=== PATIENT | female | born 1960 | race Caucasian/White ===

== ENCOUNTER 2021-06-19 09:58 | Emergency (ER) | payer OTHER ==
[~2021-06-19] VITALS: Ht 157.5 cm; Wt 68.1 kg
[2021-06-19 11:38] LABS: HEMATOCRIT 42.2 % (37.0-47.0); HEMOGLOBIN 13.6 g/dl (12.0-16.0); IMMATURE GRANULOCYTES 0.2 % (0.0-5.0); MEAN CELL VOLUME 91.1 fL CALC (80.0-100.0); MEAN CORPUSCULAR HGB 29.4 pG CALC (26.0-32.0); MEAN CORPUSCULAR HGB CONC 32.2 g/dL CAL (32.0-36.0); NEUT# 3.07 thou/uL (2.00-7.15); RED BLOOD COUNT 4.63 mill/uL (4.20-5.60); RED CELL DISTRI WIDTH 14.2 % (11.5-15.5)
[2021-06-19 11:52] LABS: ALBUMIN 4.4 g/dL (3.2-5.0); ALKALINE PHOSPHATASE 99 u/l (38-126); ANION GAP 11 (6-22 (CALC)); BILIRUBIN, TOTAL 0.5 mg/dL (0.0-1.4); BUN 24 mg/dL (7-17); BUN/CREATININE RATIO 31 (12-20 (CALC)); CARBON DIOXIDE 29 mmol/l (22-30); CHLORIDE 104 mmol/l (95-108); CREATININE 0.8 mg/dL (0.5-1.0); GFR > 60 ML/MIN (>=60 (CALC)); GFR FOR AFR.AMER. > 60 ML/MIN (>=60 (CALC)); POTASSIUM 4.3 mmol/l (3.5-5.1); SGOT/AST 24 u/l (14-36); SODIUM 140 mmol/l (137-146); TOTAL PROTEIN 7.6 g/dL (6.3-8.2)
[2021-06-19 14:39] VITALS: BP 118/80
== END 2021-06-19 14:45 | disposition home or self-care (01) | DRG 563 ==
LOC: ED 09:58
PROVIDERS: Emergency Medicine
PROC: 2W3SX1Z Immobilization of Right Foot using Splint (ICD-10-PCS; principal; 2021-06-19)
DX: S92.351A Displaced fracture of fifth metatarsal bone, right foot, initial encounter for closed fracture (principal); S20.212A Contusion of left front wall of thorax, initial encounter; V43.52XA Car driver injured in collision with other type car in traffic accident, initial encounter
CPT/HCPCS: Q9967